=== PATIENT | male | born 1980 | race Caucasian/White ===

== ENCOUNTER 2017-09-21 14:02 | Observation (INO) | payer SELFPAY ==
[2017-09-21] VITALS (7 sets, daily range): BP systolic 136–159; BP diastolic 74–93; PULSE 88–104; RESP 17–20; TEMP 98.6–99; O2SAT 95–96
[~2017-09-21] VITALS: Ht 167.6 cm; Wt 43.4 kg
[~2017-09-21 14:02] MED LIST: CEPH500C3 PO; LORT5TAB PO
--- NOTE | 2017-09-21 14:43 | PD ---
HPI Chief Complaint: GI Complaint Time Seen by Provider: 14:32 Travel History International Travel<30 days: No Contact w/Intl Traveler<30days: No Traveled to known affect area: No History of Present Illness HPI This 37-year-old male says he has been vomiting for 3 days. He says that since ' [place] he has had persistent vomiting. He has some epigastric discomfort. He says he has been unable to hold anything down. He has not eaten for 3 days. He has had some loose stools. He says that he has been coughing a lot He is not aware of fever or chills. He is on no medications. He has no history of abdominal surgery. He has occasional epigastric discomfort. He does not smoke cigarettes, he smokes occasional marijuana. he drinks rarely PFSH Past Medical History Diminished Hearing: No Musculoskeletal: Yes (SCOLIOSIS) Tetanus Vaccination: > 5 Years Influenza Vaccination: No Past Surgical History Abdominal Surgery: Yes (HERNIA REPAIR (12 yo)) Social History Alcohol Use: No Tobacco Use: No Substance Use: Yes (marijuana) Allergies-Medications (Allergen,Severity, Reaction): Coded Allergies: No Known Allergies (Verified Adverse Reaction, Unknown, 09/21/17) Reported Meds & Prescriptions Reported Meds & Active Scripts Active No Active Prescriptions or Reported Medications Review of Systems General / Constitutional: No: Fever, Chills Eyes: No: Diploplia, Blurred Vision HENT: No: Headaches, Vertigo Cardiovascular: No: Chest Pain or Discomfort, Palpitations Respiratory: Positive: Cough, No: Shortness of Breath Gastrointestinal: Positive: Nausea, Vomiting, Diarrhea Genitourinary: No: Frequency, Dysuria Musculoskeletal: No: Myalgias, Arthralgias Skin: No Rash, No Itching Neurologic: Positive: Weakness Psychiatric: No: Anxiety, Depression Endocrine: No: Heat Intolerance Hematologic/Lymphatic: No: Easy Bruising Physical Exam Narrative GENERAL: Thin male SKIN: Focused skin assessment warm/dry. HEAD: Atraumatic. Normocephalic. EYES: Pupils equal and round. No scleral icterus. No injection or drainage. ENT: No nasal bleeding or discharge. Mucous membranes pink and moist. NECK: Trachea midline. No JVD. CARDIOVASCULAR: Regular rate and rhythm. No murmur appreciated. RESPIRATORY: No accessory muscle use. Occasional rhonchi. Breath sounds equal bilaterally. GASTROINTESTINAL: Abdomen soft, non-tender, nondistended. Hepatic and splenic margins not palpable. MUSCULOSKELETAL: No obvious deformities. No clubbing. No cyanosis. No edema. NEUROLOGICAL: Awake and alert. No obvious cranial nerve deficits. Motor grossly within normal limits. Normal speech. PSYCHIATRIC: Appropriate mood and affect; insight and judgment normal. Data Data Last Documented VS Vital Signs Date Time Temp Pulse Resp B/P (MAP) Pulse Ox O2 Delivery O2 Flow Rate FiO2 09/21/17 14:04 98.6 104 17 136/92 (107) 96 Orders Orders Complete Blood Count With Diff (09/21/17 14:37) Comprehensive Metabolic Panel (09/21/17 14:37) Troponin I (09/21/17 14:37) Lipase (09/21/17 14:37) Urinalysis - C+S If Indicated (09/21/17 14:37) Sodium Chlor 0.9% 1000 Ml Inj (Ns 1000 M (09/21/17 14:45) Sodium Chlor 0.9% 1000 Ml Inj (Ns 1000 M (09/21/17 14:45) Ondansetron Inj (Zofran Inj) (09/21/17 14:45) Pantoprazole Inj (Protonix Inj) (09/21/17 14:45) Electrocardiogram (09/21/17 14:37) Chest, Single Ap (09/21/17 15:10) Ct Abd/Pel W Iv Contrast(Rout) (09/21/17 15:10) Iohexol 350 Inj (Omnipaque 350 Inj) (09/21/17 15:48) Blood Culture (09/21/17 16:14) Ceftriaxone Inj (Rocephin Inj) (09/21/17 16:15) Azithromycin Inj (Zithromax Inj) (09/21/17 16:15) Labs Laboratory Tests Test 09/21/17 14:55 09/21/17 15:59 White Blood Count 20.8 TH/MM3 Red Blood Count 5.49 MIL/MM3 Hemoglobin 15.8 GM/DL Hematocrit 47.9 % Mean Corpuscular Volume 87.2 FL Mean Corpuscular Hemoglobin 28.8 PG Mean Corpuscular Hemoglobin Concent 33.0 % Red Cell Distribution Width 12.9 % Platelet Count 378 TH/MM3 Mean Platelet Volume 7.4 FL Neutrophils (%) (Auto) 81.4 % Lymphocytes (%) (Auto) 8.6 % Monocytes (%) (Auto) 6.6 % Eosinophils (%) (Auto) 0.0 % Basophils (%) (Auto) 3.4 % Neutrophils # (Auto) 16.9 TH/MM3 Lymphocytes # (Auto) 1.8 TH/MM3 Monocytes # (Auto) 1.4 TH/MM3 Eosinophils # (Auto) 0.0 TH/MM3 Basophils # (Auto) 0.7 TH/MM3 CBC Comment AUTO DIFF Differential Comment AUTO DIFF CONFIRMED Platelet Estimate NORMAL Platelet Morphology Comment NORMAL Red Cell Morphology Comment NORMAL Blood Urea Nitrogen 23 MG/DL Creatinine 1.20 MG/DL Random Glucose 265 MG/DL Total Protein 8.0 GM/DL Albumin 3.9 GM/DL Calcium Level 9.5 MG/DL Alkaline Phosphatase 98 U/L Aspartate Amino Transf (AST/SGOT) 30 U/L Alanine Aminotransferase (ALT/SGPT) 11 U/L Total Bilirubin 1.5 MG/DL Sodium Level 132 MEQ/L Potassium Level 4.2 MEQ/L Chloride Level 92 MEQ/L Carbon Dioxide Level 30.9 MEQ/L Anion Gap 9 MEQ/L Estimat Glomerular Filtration Rate 68 ML/MIN Troponin I LESS THAN 0.02 NG/ML Lipase 73 U/L Urine pH 6.5 Urine Protein 30 mg/dL Urine Glucose (UA) 1000 OR GREATER mg/dL Urine Ketones 40 mg/dL Urine Occult Blood TRACE Urine Nitrite NEG Urine Bilirubin NEG Urine Leukocyte Esterase NEG MDM Medical Decision Making Medical Screen Exam Complete: Yes Emergency Medical Condition: Yes Medical Record Reviewed: Yes Differential Diagnosis Differential includes gastroenteritis, dehydration, appendicitis, chest pain Narrative Course EKG shows sinus rhythm with short ME interval. There is left axis deviation. Troponin is less than 0.2. His glucose is 265. There is no history of diabetes. His hemoglobin is 15.8 his white count is elevated at 20.8. There are 81 polys and 9% lymphs. Chest x-rays read as negative. CT scan of the abdomen and pelvis is read as showing a right middle lobe infiltrate Diagnosis Primary Impression: Pneumonia Additional Impression: Leukocytosis Admitting Information Admitting Physician Requests: Admit Scripts No Active Prescriptions or Reported Meds Osiel Boykin MD Sep 21, 2017 14:43
[2017-09-21] MEDS ORDERED: ONDANSETRON HCL 4 MG/2 ML VIAL IV PUSH ONE (14:45)
[2017-09-21] MEDS ORDERED: SODIUM CHLOR 0.9% 1000 ML INJ 1,000 ML IV ONE ×2 (14:45)
[2017-09-21] MEDS ORDERED: PANTOPRAZOLE SODIUM 40 MG VIAL IV PUSH ONE (14:45)
[2017-09-21 15:02] LABS: AUTOMATED NEUTROPHIL # 16.9 TH/MM3 (1.8-7.7); BASOPHIL # 0.7 TH/MM3 (0-0.2); BASOPHIL % 3.4 % (0.0-2.0); HEMATOCRIT 47.9 % (39.0-51.0); HEMOGLOBIN 15.8 GM/DL (13.0-17.0); LYMPH % 8.6 % (9.0-44.0); LYMPHOCYTE # 1.8 TH/MM3 (1.0-4.8); MEAN CELL VOLUME 87.2 FL (80.0-100.0); MEAN CORPUSCULAR HEMOGLOBIN 28.8 PG (27.0-34.0); MEAN PLATELET VOLUME 7.4 FL (7.0-11.0); MONO % 6.6 % (0.0-8.0); MONOCYTE # 1.4 TH/MM3 (0-0.9); NEUT % 81.4 % (16.0-70.0); PLATELET COUNT 378 TH/MM3 (150-450); RED BLOOD COUNT 5.49 MIL/MM3 (4.50-5.90); RED CELL DISTRIBUTION WIDTH 12.9 % (11.6-17.2); WHITE BLOOD COUNT 20.8 TH/MM3 (4.0-11.0)
[2017-09-21 15:09] LABS: CHLORIDE 92 MEQ/L (98-107); SODIUM (NA) 132 MEQ/L (136-145)
[2017-09-21 15:13] LABS: CALCIUM 9.5 MG/DL (8.5-10.1)
[2017-09-21 15:14] LABS: ALBUMIN 3.9 GM/DL (3.4-5.0); BICARBONATE 30.9 MEQ/L (21.0-32.0); BLOOD UREA NITROGEN 23 MG/DL (7-18); GLUCOSE,RANDOM 265 MG/DL (74-106); LIPASE 73 U/L (73-393)
[2017-09-21 15:17] LABS: ALT (GPT) 11 U/L (12-78); AST (GOT) 30 U/L (15-37); GLOMERULAR FILTRATION RATE 68 ML/MIN (>89)
[2017-09-21 15:18] LABS: TOTAL BILIRUBIN ADULT 1.5 MG/DL (0.2-1.0)
[2017-09-21 15:20] LABS: ALKALINE PHOSPHATASE 98 U/L (45-117)
[2017-09-21 15:22] LABS: TROPONIN I LESS THAN 0.02 NG/ML (0.02-0.05)
[2017-09-21] MEDS ORDERED: IOHEXOL 350 MG/ML 10 ML VIAL (for RAD DIAG) IVCONTRAST ONE (15:48)
--- NOTE | 2017-09-21 15:52 | RADRPT ---
EXAM DATE/TIME: 09/21/2017 15:25 [facility] COMPARISON: No previous studies available for comparison. INDICATIONS : Chest pain. MEDICAL HISTORY : Scoliosis. SURGICAL HISTORY : None. ENCOUNTER: Initial ACUITY: 3 days PAIN SCORE: 2/10 LOCATION: Bilateral chest FINDINGS: The heart is normal. The pulmonary vascular pattern is normal. The lungs are clear. Scoliosis of the thoracolumbar spine is noted. CONCLUSION: 1. No acute cardiopulmonary disease. 2. Scoliosis of the thoracolumbar spine. Yves Beltrán MD on September 21, 2017 at 15:49 Board Certified Radiologist. This report was verified electronically.
--- NOTE | 2017-09-21 16:09 | RADRPT ---
EXAM DATE/TIME: 09/21/2017 15:40 [facility] COMPARISON: No previous studies available for comparison. INDICATIONS : Nausea, vomiting, and diarrhea with acid reflux. IV CONTRAST: 75 cc Omnipaque 350 (iohexol) IV ORAL CONTRAST: No oral contrast ingested. RADIATION DOSE: 4.44 CTDIvol (mGy) MEDICAL HISTORY : None SURGICAL HISTORY : Hernia repair. ENCOUNTER: Initial ACUITY: 3 days PAIN SCALE: 0/10 LOCATION: abdomen TECHNIQUE: Volumetric scanning of the abdomen and pelvis was performed. Using automated exposure control and ad justment of the mA and/or kV according to patient size, radiation dose was kept as low as reasonably achievable to obtain optimal diagnostic quality images. DICOM format image data is available electro nically for review and comparison. FINDINGS: CT Abdomen: The spleen, pancreas, right kidney, adrenals are unremarkable. An approximate 1.4 cm cyst is present in the left kidney and there are 2 simple cysts in the right hepatic lobe the larger one measures 1.8 cm in size. There is no evidence for any appreciable pathological adenopathy, free fluid , or bowel obstruction. There is atelectasis and/or infiltrate within the right middle lobe. CT pelvis: There is no evidence for mass, abscess formation, or any significant adenopathy within the pelvis. Tiny one on is present in the left ischium and bilateral iliac bones and sacrum largest almo st 3-4 mm in size. CONCLUSION: Right middle lobe infiltrate. Jessica Myles MD on September 21, 2017 at 15:55 Board Certified Radiologist. This report was verified electronically.
[2017-09-21 16:11] LABS: BILIRUBIN, URINE NEG (NEG); BLOOD, URINE TRACE (NEG); GLUCOSE,URINE 1000 OR GREATER mg/dL (NEG); KETONE, URINE 40 mg/dL (NEG); NITRITE,URINE NEG (NEG); PH, URINE 6.5 (5.0-8.5); URINE LEUKOCYTE ESTERASE NEG (NEG)
[2017-09-21] MEDS ORDERED: AZITHROMYCIN INJ 500 MG in SODIUM CHLOR 0.9% 250 ML INJ 250 ML IV ONE (16:15)
[2017-09-21] MEDS ORDERED: cefTRIAXone INJ 1,000 MG in SODIUM CHLORIDE 0.9% INJ 100 ML IV ONE (16:15)
[2017-09-21 16:18] LABS: URINE COLOR STRAW (YELLW/STRAW)
[2017-09-21 16:20] LABS: SQUAMOUS EPITHELIAL CELL URINE 0-2 /hpf (0-5); WBC, URINE 0-2 /hpf (0-5)
[2017-09-21] MEDS ORDERED: RESP: ALBUTEROL 2.5 MG/IPRATROPIUM 0.5 MG NEB (PRN) INH (17:00)
[2017-09-21] MEDS ORDERED: SODIUM CHLORIDE 0.9% FLUSH 10 ML FLUSH IV FLUSH PRN (17:00)
[2017-09-21] MEDS ORDERED: ACETAMINOPHEN 325 MG TAB PO PRN (17:00)
[2017-09-21] MEDS: ENOXAPARIN SODIUM 40 MG/0.4 ML SYRINGE SQ SCH (18:29)
[2017-09-21] MEDS: ONDANSETRON HCL 4 MG/2 ML VIAL IV PUSH PRN (18:38)
[2017-09-21] MEDS: LEVOFLOXACIN 750 MG PREMIX INJ 150 ML IV SCH (20:38)
[2017-09-21] MEDS: SODIUM CHLORIDE 0.9% FLUSH 10 ML FLUSH IV FLUSH SCH (20:55)
[2017-09-22 04:00] VITALS: BP 142/87; PULSE 80; RESP 20; TEMP 97.9; O2SAT 97
[2017-09-22] MEDS: ONDANSETRON HCL 4 MG/2 ML VIAL IV PUSH PRN (04:40)
[2017-09-22 05:44] LABS: AUTOMATED NEUTROPHIL # 12.5 TH/MM3 (1.8-7.7); BASOPHIL % 0.2 % (0.0-2.0); EOSINOPHIL % 0.1 % (0.0-4.0); HEMATOCRIT 40.4 % (39.0-51.0); HEMOGLOBIN 13.7 GM/DL (13.0-17.0); LYMPH % 9.3 % (9.0-44.0); LYMPHOCYTE # 1.4 TH/MM3 (1.0-4.8); MEAN CELL VOLUME 86.6 FL (80.0-100.0); MEAN CORPUSCULAR HEMOGLOBIN 29.4 PG (27.0-34.0); MEAN CORPUSCULAR HGB CONC 33.9 % (32.0-36.0); MEAN PLATELET VOLUME 7.7 FL (7.0-11.0); MONO % 6.7 % (0.0-8.0); NEUT % 83.7 % (16.0-70.0); PLATELET COUNT 293 TH/MM3 (150-450); RED BLOOD COUNT 4.67 MIL/MM3 (4.50-5.90); RED CELL DISTRIBUTION WIDTH 12.5 % (11.6-17.2); WHITE BLOOD COUNT 14.9 TH/MM3 (4.0-11.0)
[2017-09-22 05:53] LABS: CALCIUM 8.8 MG/DL (8.5-10.1)
[2017-09-22 05:54] LABS: BICARBONATE 27.7 MEQ/L (21.0-32.0)
[2017-09-22 07:14] LABS: CREATININE 0.9 MG/DL (0.60-1.30)
[2017-09-22 08:00] VITALS: BP 128/82; PULSE 86; RESP 18; TEMP 99.7; O2SAT 96
[2017-09-22] MEDS: SODIUM CHLORIDE 0.9% FLUSH 10 ML FLUSH IV FLUSH SCH ×2 (09:25→21:04)
[2017-09-22] MEDS: guaiFENesin/CODEINE SYRUP 200 MG/20 MG/10 ML CUP PO PRN (09:25)
[2017-09-22] MEDS ORDERED: DEXTROSE 50% IN WATER 50 ML VIAL(D50) IV PUSH PRN (10:15)
[2017-09-22] MEDS ORDERED: GLUCAGON 1 MG/ML VIAL OTHER PRN (10:15)
[2017-09-22 10:38] LABS: ALBUMIN 3.2 GM/DL (3.4-5.0); ALKALINE PHOSPHATASE 70 U/L (45-117); ALT (GPT) 7 U/L (12-78); AST (GOT) 16 U/L (15-37); DIRECT BILIRUBIN ADULT 0.3 MG/DL (0.0-0.2); INDIRECT BILIRUBIN 0.9 MG/DL (0.0-0.8); TOTAL BILIRUBIN ADULT 1.2 MG/DL (0.2-1.0); TOTAL PROTEIN 6.4 GM/DL (6.4-8.2)
--- NOTE | 2017-09-22 11:16 | HHI.HP ---
[facility] Service [facility] Primary Care Physician No Primary Care Physician Admission Diagnosis Sepsis PNEUMONIA, LEUKOCYTOSIS Diagnoses: (1) Sepsis Diagnosis: Principal (2) Gastroenteritis Diagnosis: Principal (3) Leukocytosis Diagnosis: Principal (4) Pneumonia Diagnosis: Principal (5) Hyperglycemia Diagnosis: Principal (6) Hyperbilirubinemia Diagnosis: Principal (7) Hyponatremia Diagnosis: Principal Chief Complaint: Nausea vomiting Travel History International Travel<30 Days: No Contact w/Intl Traveler <30 Da: No Traveled to Known Affected Are: No History of Present Illness Written by Geovany Meza, acting as scribe for Dr. William on 09/22/17 at 11: 00. 37 year-old male with known history of scoliosis who presented to hospital because of nausea and vomiting since . Patient states that he is in normal state of health until when he ate some leftover pizza and subsequently started developing nausea vomiting and diarrhea. Patient indicates that he cannot tolerate any significant liquid or food intake, he started developing generalized abdominal discomfort and because it would not go away and persisted he came to the ER for evaluation. Upon workup in emergency department patient was found to have septic criteria with significant leukocytosis, tachycardia, CT finding of right middle lobe pneumonia. Because of those reasons it was recommended by the ER physician that patient be observed in the hospital for further workup. Upon further review of workup done emergency department it does also indicate significant hyperglycemia with glucose 265. Patient does not have any history of diabetes. Does have strong family history of diabetes. Upon evaluating the patient this morning he states that he is feeling a little better. He was able to tolerate some food this morning without any nausea or vomiting. Review of Systems Constitutional: COMPLAINS OF: Chills Endocrine: DENIES: Heat/cold intolerance, Polydipsia, Polyuria, Polyphagia Respiratory: COMPLAINS OF: Cough Gastrointestinal: COMPLAINS OF: Diarrhea, Nausea, Vomiting Except as stated in HPI: all other systems reviewed are Neg Past Family Social History Past Medical History Scoliosis Past Surgical History Left inguinal hernia repair at age 11 Reported Medications Reported Meds & Active Scripts Active No Active Prescriptions or Reported Medications Allergies: Coded Allergies: No Known Allergies (Verified Allergy, Unknown, 09/21/17) Family History Reviewed is significant for mother and father with diabetes Social History Patient does use marijuana on a daily basis, approximately 2 marijuana cigarettes daily. Patient quit smoking cigarettes approximately 10 years ago, prior to that he smoked 2 pack a cigarettes a day since he was 17. Physical Exam Vital Signs Vital Signs Date Time Temp Pulse Resp B/P (MAP) Pulse Ox O2 Delivery O2 Flow Rate FiO2 09/22/17 08:00 99.7 86 18 128/82 (97) 96 09/22/17 04:00 97.9 80 20 142/87 (105) 97 09/21/17 22:30 96 21 09/21/17 21:00 98.9 94 20 137/93 (108) 96 09/21/17 18:35 99.0 88 18 159/93 (115) 95 Room Air 09/21/17 17:17 99.0 90 18 142/75 (97) 96 Room Air 09/21/17 16:20 94 18 137/74 (95) 95 Room Air 09/21/17 14:04 98.6 104 17 136/92 (107) 96 Physical Exam GENERAL: Well-developed, well-nourished, in no acute distress. alert and orientated HEENT: Head is normocephalic without any lesions or masses noted. Facial features are symmetric. Eyes: Pupils equal round reactive to light. Extraocular muscles are intact. Conjunctivae were clear. Oropharyngeal: Pharynx without any erythema edema. Tongue is midline without deviation. Buccal mucosa is moist without any masses or lesions, patient with laryngitis and very soft speech NECK: Supple without any masses. Trachea midline no deviation. No JVD, no bruits are appreciated CARDIAC: Regular rhythm, regular rate. S1/S2 are heard. No murmurs gallops or rubs. LUNGS: Clear to auscultation bilaterally. No wheeze, rhonchi or rales. No use of accessory muscles on inspiration or expiration. Dry cough ABDOMEN: Soft, nontender. Nondistended. Bowel sounds heard in all 4 quadrants. No organomegaly or masses. Negative rebound, negative guarding EXTREMITIES: No edema, pulses are equal bilaterally. No cyanosis or clubbing NEUROLOGY: Mood and affect appear appropriate. Cranial nerves II through XII grossly intact. Muscle strength 5/5 in upper and lower extremities bilaterally. Deep tendon reflexes are 2+ in upper and lower extremities bilaterally. Laboratory Laboratory Tests Test 09/21/17 14:55 09/21/17 15:59 09/22/17 04:30 White Blood Count 20.8 14.9 Red Blood Count 5.49 4.67 Hemoglobin 15.8 13.7 Hematocrit 47.9 40.4 Mean Corpuscular Volume 87.2 86.6 Mean Corpuscular Hemoglobin 28.8 29.4 Mean Corpuscular Hemoglobin Concent 33.0 33.9 Red Cell Distribution Width 12.9 12.5 Platelet Count 378 293 Mean Platelet Volume 7.4 7.7 Neutrophils (%) (Auto) 81.4 83.7 Lymphocytes (%) (Auto) 8.6 9.3 Monocytes (%) (Auto) 6.6 6.7 Eosinophils (%) (Auto) 0.0 0.1 Basophils (%) (Auto) 3.4 0.2 Neutrophils # (Auto) 16.9 12.5 Lymphocytes # (Auto) 1.8 1.4 Monocytes # (Auto) 1.4 1.0 Eosinophils # (Auto) 0.0 0.0 Basophils # (Auto) 0.7 0.0 CBC Comment AUTO DIFF AUTO DIFF Differential Comment AUTO DIFF CONFIRMED AUTO DIFF CONFIRMED Platelet Estimate NORMAL Platelet Morphology Comment NORMAL Red Cell Morphology Comment NORMAL Blood Urea Nitrogen 23 17 Creatinine 1.20 0.90 Random Glucose 265 163 Total Protein 8.0 6.4 Albumin 3.9 3.2 Calcium Level 9.5 8.8 Alkaline Phosphatase 98 70 Aspartate Amino Transf (AST/SGOT) 30 16 Alanine Aminotransferase (ALT/SGPT) 11 7 Total Bilirubin 1.5 1.2 Sodium Level 132 136 Potassium Level 4.2 3.8 Chloride Level 92 98 Carbon Dioxide Level 30.9 27.7 Anion Gap 9 10 Estimat Glomerular Filtration Rate 68 94 Troponin I LESS THAN 0.02 Lipase 73 Urine Collection Type VOIDED Urine Color STRAW Urine Turbidity CLEAR Urine pH 6.5 Urine Specific [place] 1.035 Urine Protein 30 Urine Glucose (UA) 1000 OR GREATER Urine Ketones 40 Urine Occult Blood TRACE Urine Nitrite NEG Urine Bilirubin NEG Urine Leukocyte Esterase NEG Urine WBC 0-2 Urine Squamous Epithelial Cells 0-2 Microscopic Urinalysis Comment CULT NOT INDICATED Direct Bilirubin 0.3 Indirect Bilirubin 0.9 Date/Time Source Procedure Growth Status 09/21/17 16:45 Blood Peripheral Aerobic Blood Culture Pending Received 09/21/17 16:45 Blood Peripheral Anaerobic Blood Culture Pending Received 09/22/17 08:45 Sputum Expectorated Sputum Gram Stain Pending Received 09/22/17 08:45 Sputum Expectorated Sputum Sputum Culture Pending Received Result Diagram: 09/22/17 0430 09/22/17 0430 Imaging Last Impressions Chest X-Ray 09/21/17 1510 Signed Impressions: Service Date/Time: Thursday, September 21, 2017 15:25 - CONCLUSION: 1. No acute cardiopulmonary disease. 2. Scoliosis of the thoracolumbar spine. Yves Beltrán MD Abdomen/Pelvis CT 09/21/17 1510 Signed Impressions: Service Date/Time: Thursday, September 21, 2017 15:40 - CONCLUSION: Right middle lobe infiltrate. KVivek Myles MD Septic Shock Reassessment Septic shock perfusion: reassessment completed Caprini VTE Risk Assessment Caprini VTE Risk Assessment: No/Low Risk (score <= 1) Caprini Risk Assessment Model Point Value = 1 Point Value = 2 Point Value = 3 Point Value = 5 Age 41-60 Minor surgery BMI > 25 kg/m2 Swollen legs Varicose veins or History of unexplained or recurrent spontaneous Oral contraceptives or hormone replacement Sepsis (< 1 month) Serious lung disease, including pneumonia (< 1 month) Abnormal pulmonary function Acute myocardial infarction Congestive heart failure (< 1 month) History of inflammatory bowel disease Medical patient at bed rest Age 61-74 Arthroscopic surgery Major open surgery (> 45 min) Laparoscopic surgery (> 45 min) Malignancy Confined to bed (> 72 hours) Immobilizing plaster cast Central venous access Age >= 75 History of VTE Family history of VTE Factor V Leiden Prothrombin [id number] Lupus anticoagulant Anticardiolipin antibodies Elevated serum homocysteine Heparin-induced thrombocytopenia Other congenital or acquired thrombophilia Stroke (< 1 month) Elective arthroplasty Hip, pelvis, or leg fracture Acute spinal cord injury (< 1 month) Prophylaxis Regimen Total Risk Factor Score Risk Level Prophylaxis Regimen 0-1 Low Early ambulation 2 Moderate Order ONE of the following: *Sequential Compression Device (SCD) *Heparin 5000 units SQ BID 3-4 Higher Order ONE of the following medications: *Heparin 5000 units SQ TID *Enoxaparin/Lovenox 40 mg SQ daily (WT < 150 kg, CrCl > 30 mL/min) *Enoxaparin/Lovenox 30 mg SQ daily (WT < 150 kg, CrCl > 10-29 mL/min) *Enoxaparin/Lovenox 30 mg SQ BID (WT < 150 kg, CrCl > 30 mL/min) AND/OR *Sequential Compression Device (SCD) 5 or more Highest Order ONE of the following medications: *Heparin 5000 units SQ TID (Preferred with Epidurals) *Enoxaparin/Lovenox 40 mg SQ daily (WT < 150 kg, CrCl > 30 mL/min) *Enoxaparin/Lovenox 30 mg SQ daily (WT < 150 kg, CrCl > 10-29 mL/min) *Enoxaparin/Lovenox 30 mg SQ BID (WT < 150 kg, CrCl > 30 mL/min) AND *Sequential Compression Device (SCD) Assessment and Plan Assessment and Plan Sepsis Patient meets criteria with leukocytosis, tachycardia, CT finding of right middle lobe pneumonia Patient was given Rocephin and Zithromax in the emergency department, patient continued on Levaquin Leukocytosis has significantly improved, no more tachycardia Influenza testing was negative Blood cultures and sputum culture are pending Gastroenteritis with hyperbilirubinemia, dehydration Multifactorial, could be secondary to hyperglycemia/diabetic gastroparesis, food poisoning, vital etiology Continue IV fluids Continue antiemetic Advance diet as tolerated Hyperglycemia, likely new onset diabetes Patient with presenting glucose 265 with pseudohyponatremia, urine glucose, strong family history of diabetes Obtain hemoglobin A1c Obtain diabetic counseling, dietary counseling Prevention Low risk, early ambulation Discharge disposition Case management consulted to arrange patient care assistance, blue card, outpatient follow-[facility] with [facility] Code Status Full code Medical Decision Making Impression and Plan The exam, history, and the medical decision-making described in the above note were completed with my assistance as the dictating practitioner. I attest that I had a [id number] encounter with the patient on the same day, and personally performed all of the history, exam, or medical decision making. I reviewed and agree with the plan. Patient seen and evaluatedThis note was transcribed by yany [[email or web address]]. I, Dr. Laila William personally performed the history, physical exam, and medical decision making; and confirmed the accuracy of the information in the transcribed note. Authenticated by Dr. Laila William on 09/22/17 at 12:13. Geovany Meza Sep 22, 2017 11:16 Laila William MD Sep 22, 2017 12:13
[2017-09-22 12:00] VITALS: BP 121/76; PULSE 89; RESP 18; TEMP 98.8; O2SAT 97
[2017-09-22] MEDS: INSULIN ASPART SUPPLEMENTAL SCALE SQ SCH ×3 (12:00→21:03)
--- NOTE | 2017-09-22 12:26 | EKG ---
Date Performed: 09/21/2017 Time Performed: 14:45:43 PTAGE: 37 years EKG: Sinus rhythm WITH SHORT CT INTERVAL MARKED LEFT AXIS DEVIATION POSSIBLE RIGHT VENTRICULAR CONDUCTION DELAY NONSPE CIFIC ST ELEVATION ABNORMAL ECG NO PREVIOUS TRACING DOCTOR: Sawyer Farooq Interpretating Date/Time 09/22/2017 12:25:33
[2017-09-22 15:56] LABS: HEMOGLOBIN A1C 9.2 % (4.3-6.0)
[2017-09-22 16:00] VITALS: BP 141/85; PULSE 80; RESP 18; TEMP 100.3; O2SAT 96
[2017-09-22] MEDS: ENOXAPARIN SODIUM 40 MG/0.4 ML SYRINGE SQ SCH (16:57)
[2017-09-22] MEDS: LEVOFLOXACIN 750 MG PREMIX INJ 150 ML IV SCH (16:57)
[2017-09-22 20:00] VITALS: BP 138/83; PULSE 82; RESP 20; TEMP 99.2; O2SAT 96
[2017-09-23] VITALS: BP 134/89; PULSE 86; RESP 20; TEMP 97.7; O2SAT 97
[2017-09-23 06:39] LABS: AUTOMATED NEUTROPHIL # 7.1 TH/MM3 (1.8-7.7); BASOPHIL % 0.3 % (0.0-2.0); EOSINOPHIL % 0.4 % (0.0-4.0); HEMATOCRIT 43.2 % (39.0-51.0); HEMOGLOBIN 14.1 GM/DL (13.0-17.0); LYMPH % 18.5 % (9.0-44.0); LYMPHOCYTE # 1.9 TH/MM3 (1.0-4.8); MEAN CELL VOLUME 87.6 FL (80.0-100.0); MEAN CORPUSCULAR HEMOGLOBIN 28.5 PG (27.0-34.0); MEAN CORPUSCULAR HGB CONC 32.6 % (32.0-36.0); MEAN PLATELET VOLUME 7.6 FL (7.0-11.0); MONO % 9.7 % (0.0-8.0); NEUT % 71.1 % (16.0-70.0); PLATELET COUNT 311 TH/MM3 (150-450); RED BLOOD COUNT 4.93 MIL/MM3 (4.50-5.90); RED CELL DISTRIBUTION WIDTH 12.4 % (11.6-17.2)
[2017-09-23 07:06] LABS: CALCIUM 8.9 MG/DL (8.5-10.1)
[2017-09-23 07:07] LABS: MAGNESIUM 1.9 MG/DL (1.5-2.5)
[2017-09-23 07:10] LABS: CREATININE 0.92 MG/DL (0.60-1.30)
[2017-09-23 08:00] VITALS: BP 142/89; PULSE 80; RESP 14; TEMP 99.3; O2SAT 96
[2017-09-23] MEDS: INSULIN ASPART SUPPLEMENTAL SCALE SQ SCH (08:00)
[2017-09-23] MEDS: SODIUM CHLORIDE 0.9% FLUSH 10 ML FLUSH IV FLUSH SCH (09:00)
[2017-09-23] MEDS ORDERED: metFORMIN HCL 500 MG TAB PO SCH (09:30)
[2017-09-23] MEDS ORDERED: ZOFR4TAB3 SL (10:39)
[2017-09-23] MEDS ORDERED: LANCETS1 MI1 (10:39)
[2017-09-23] MEDS ORDERED: METF500 PO (10:39)
[2017-09-23] MEDS ORDERED: GLUCTES12 (10:39)
[2017-09-23] MEDS ORDERED: LEVO750T3 PO (10:39)
--- NOTE | 2017-09-23 10:40 | HHI.DCPOC ---
Discharge Care Plan Diagnosis: (1) Diabetes (2) Sepsis (3) Pneumonia Goals to Promote Your Health * To prevent worsening of your condition and complications * To maintain your health at the optimal level Directions to Meet Your Goals Take your medications as prescribed Follow your dietary instruction Follow activity as directed Keep your appointments as scheduled Take your immunizations and boosters as scheduled If your symptoms worsen call your PCP, if no PCP go to Urgent Care Center or Emergency Room Smoking is Dangerous to Your Health. Avoid second hand smoke Call the 24-hour hour crisis hotline for domestic abuse at Geovany Meza Sep 23, 2017 10:40
--- NOTE | 2017-09-23 10:42 | HHI.DS ---
Discharge Summary Admission Date Sep 21, 2017 at 16:31 Discharge Date: Sep 23, 2017 Admitting Diagnosis Sepsis PNEUMONIA, LEUKOCYTOSIS (1) Sepsis ICD Code: A41.9 - Sepsis, unspecified organism Diagnosis: Principal (2) Gastroenteritis ICD Code: K52.9 - Noninfective gastroenteritis and colitis, unspecified Diagnosis: Principal Status: Acute (3) Leukocytosis ICD Code: D72.829 - Elevated white blood cell count, unspecified Diagnosis: Principal Status: Acute (4) Pneumonia ICD Code: J18.9 - Pneumonia, unspecified organism Diagnosis: Principal Status: Acute (5) Hyperglycemia ICD Code: R73.9 - Hyperglycemia, unspecified Diagnosis: Principal (6) Hyperbilirubinemia ICD Code: E80.6 - Other disorders of bilirubin metabolism Diagnosis: Principal (7) Hyponatremia ICD Code: E87.1 - Hypo-osmolality and hyponatremia Diagnosis: Principal (8) Diabetes ICD Code: E11.9 - Type 2 diabetes mellitus without complications Procedures None Brief History - From Admission Written by Geovany Meza, acting as scribe for Dr. William on 09/22/17 at 11: 00. 37 year-old male with known history of scoliosis who presented to hospital because of nausea and vomiting since . Patient states that he is in normal state of health until when he ate some leftover pizza and subsequently started developing nausea vomiting and diarrhea. Patient indicates that he cannot tolerate any significant liquid or food intake, he started developing generalized abdominal discomfort and because it would not go away and persisted he came to the ER for evaluation. Upon workup in emergency department patient was found to have septic criteria with significant leukocytosis, tachycardia, CT finding of right middle lobe pneumonia. Because of those reasons it was recommended by the ER physician that patient be observed in the hospital for further workup. Upon further review of workup done emergency department it does also indicate significant hyperglycemia with glucose 265. Patient does not have any history of diabetes. Does have strong family history of diabetes. Upon evaluating the patient this morning he states that he is feeling a little better. He was able to tolerate some food this morning without any nausea or vomiting. CBC/BMP: 1/4/18 0506 09/23/17 0506 Significant Findings Laboratory Tests Test 09/21/17 14:55 09/21/17 15:59 09/22/17 04:30 09/22/17 16:30 White Blood Count 20.8 TH/MM3 (4.0-11.0) 14.9 TH/MM3 (4.0-11.0) Neutrophils (%) (Auto) 81.4 % (16.0-70.0) 83.7 % (16.0-70.0) Lymphocytes (%) (Auto) 8.6 % (9.0-44.0) Basophils (%) (Auto) 3.4 % (0.0-2.0) Neutrophils # (Auto) 16.9 TH/MM3 (1.8-7.7) 12.5 TH/MM3 (1.8-7.7) Monocytes # (Auto) 1.4 TH/MM3 (0-0.9) 1.0 TH/MM3 (0-0.9) Basophils # (Auto) 0.7 TH/MM3 (0-0.2) Blood Urea Nitrogen 23 MG/DL (7-18) Random Glucose 265 MG/DL (74-106) 163 MG/DL (74-106) Alanine Aminotransferase (ALT/SGPT) 11 U/L (12-78) 7 U/L (12-78) Total Bilirubin 1.5 MG/DL (0.2-1.0) 1.2 MG/DL (0.2-1.0) Sodium Level 132 MEQ/L (136-145) Chloride Level 92 MEQ/L (98-107) Estimat Glomerular Filtration Rate 68 ML/MIN (>89) Troponin I LESS THAN 0.02 NG/ML Urine Protein 30 mg/dL (NEG-TRACE) Urine Glucose (UA) 1000 OR GREATER mg/dL Urine Ketones 40 mg/dL (NEG) Hemoglobin A1c 9.2 % (4.3-6.0) Direct Bilirubin 0.3 MG/DL (0.0-0.2) Indirect Bilirubin 0.9 MG/DL (0.0-0.8) Albumin 3.2 GM/DL (3.4-5.0) Test 09/23/17 05:06 Neutrophils (%) (Auto) 71.1 % (16.0-70.0) Monocytes (%) (Auto) 9.7 % (0.0-8.0) Monocytes # (Auto) 1.0 TH/MM3 (0-0.9) Blood Urea Nitrogen 19 MG/DL (7-18) Random Glucose 171 MG/DL (74-106) Imaging Last Impressions Chest X-Ray 09/21/17 1510 Signed Impressions: Service Date/Time: Thursday, September 21, 2017 15:25 - CONCLUSION: 1. No acute cardiopulmonary disease. 2. Scoliosis of the thoracolumbar spine. Yves Beltrán MD Abdomen/Pelvis CT 09/21/17 1510 Signed Impressions: Service Date/Time: Thursday, September 21, 2017 15:40 - CONCLUSION: Right middle lobe infiltrate. Jessica Myles MD Hospital Course 37 year-old male who originally presented to hospital because of intractable nausea, vomiting. Patient had workup done emergency department found to have significant leukocytosis, tachycardia, right middle lobe pneumonia meeting septic criteria. Patient was placed in the hospital for observation. Patient was started on IV fluids, antibiotics, nebulizer treatment and improved significantly. However upon workup patient was found to have significant hyperglycemia. Hemoglobin A1c was performed which was 9.2. 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 Case management consulted for patient care assistance. Patient was started on Accu- Cheks with sliding scale insulin which he only required 4 units of insulin over 24 hour period. Patient certainly started on metformin 500 mg twice daily. Patient clinically improved with resolution of leukocytosis, patient without any upper respiratory symptoms, febrile illness. Patient possibly with aspiration pneumonia. Will continue treatment upon discharge. Patient clinically stable this time. Very eager to go home. Outpatient arrangements have been made for prescriptions, outpatient follow-up. Will plan discharge accordingly. Pt Condition on Discharge: Stable Discharge Disposition: Discharge Home Discharge Time: > 30 minutes Discharge Instructions DIET: Follow Instructions for: Diabetic Diet Activities you can perform: Regular-No Restrictions Follow up Referrals: PCP Follow-up - 1 Week New Medications: Glucocom Test Strips (Glucocom Test Strips) 1 Sindhu Sindhu EA .ROUTE DIRECTED for Blood Sugar Management, #1 Lancets (Lancets) 1 Mis Mis EA .ROUTE DIRECTED for Blood Sugar Management, #1 0 Refills Levofloxacin (Levofloxacin) 750 Mg Tablet 750 MG PO DAILY for Infection for 5 Days, #5 TAB 0 Refills Ondansetron Odt (Zofran Odt) 4 Mg Tab 4 MG SL Q6HR PRN for Nausea/Vomiting, #30 TAB 0 Refills Metformin (Glucophage) 500 Mg Tab 500 MG PO BIDPC for Blood Sugar Management, #60 TAB Geovany Meza Sep 23, 2017 10:42
[2017-09-23] MEDS: guaiFENesin/CODEINE SYRUP 200 MG/20 MG/10 ML CUP PO PRN (11:09)
== END 2017-09-23 12:30 | disposition home or self-care (01) ==
LOC: PHED 14:02 → INTOOBSV 16:31 → PHEDA 16:31 → PH3A 20:52
PROVIDERS: ADMIT Hospitalist; ATTEND Hospitalist
DX: J18.9 Pneumonia, unspecified organism (principal); A41.9 Sepsis, unspecified organism; K52.9 Noninfective gastroenteritis and colitis, unspecified; D72.829 Elevated white blood cell count, unspecified; E11.65 Type 2 diabetes mellitus with hyperglycemia; E80.6 Other disorders of bilirubin metabolism; E87.1 Hypo-osmolality and hyponatremia; M41.9 Scoliosis, unspecified; R00.0 Tachycardia, unspecified; Z83.3 Family history of diabetes mellitus; E86.0 Dehydration; F12.90 Cannabis use, unspecified, uncomplicated; R94.31 Abnormal electrocardiogram [ECG] [EKG]; B95.62 Methicillin resistant Staphylococcus aureus infection as the cause of diseases classified elsewhere; Z79.84 Long term (current) use of oral hypoglycemic drugs
CPT/HCPCS: 71045; 74177; 80048; 80053; 80076; 81001; 82948; 83036; 83690; 83735; 84484; 84681; 85025; 86403; 87040; 87070; 87147; 87186; 87205; 87804; 93005; 96361; 96365; 96366; 96372; 96375; 96376; 99285; C9113; G0378; J0456; J0696; J1650; J1815; J1956; J2405; J7030; J7050; Q9967